=== PATIENT | female | born 1980 | race Caucasian/White ===

== ENCOUNTER 2018-11-03 19:18 | Emergency (ER) | payer SELFPAY ==
[~2018-11-03] VITALS: Ht 175.3 cm; Wt 113.6 kg
[2018-11-03 19:31] VITALS: BP 132/67; TEMP 98.2
[2018-11-03] MEDS ORDERED: MOTRIN 800800 MG/TAB PO (20:59)
[2018-11-03 21:06] VITALS: PULSE 95
== END 2018-11-03 21:06 | disposition home or self-care (01) ==
LOC: COL.ER 19:18
DX: M25.561 Pain in right knee (principal); Z98.51 Tubal ligation status
CPT/HCPCS: J1885

== ENCOUNTER 2019-07-30 04:57 | Emergency (ER) | payer SELFPAY ==
[~2019-07-30] VITALS: Ht 175.3 cm; Wt 118.2 kg
[2019-07-30 04:57] VITALS: BP 107/41
[~2019-07-30 04:57] MED LIST: MOTRIN 800800 MG/TAB PO
[2019-07-30 05:58] LABS: BASO % 0.3 % (0.0-2.0); EOS % 0.5 % (0-4.0); GRAN # 3.9 (1.4-6.5); HEMOGLOBIN 11.3 g/dl (12.5-16.0); LYMPH # 1.9 (1.2-3.4); LYMPH % 29.5 % (20.0-51.0); MEAN CELL VOLUME 75 fl (80.0-100.0); MEAN CORPUSCULAR HEMOGLOBIN 24 pg (27.0-31.0); MEAN CORPUSCULAR HGB CONC 32 g/dl (33.0-37.0); MEAN PLATELET VOLUME 10.2 fl (7.4-10.4); MONO # 0.5 (0.1-0.6); MONO % 7.4 % (1.7-9.3); PLATELET COUNT 319 K/mm3 (130-400); RED BLOOD COUNT 4.81 M/mm3 (4.10-5.30); REDCELL DISTRIBUTION WIDTH-CV 17.1 % (11.5-14.5)
[2019-07-30 05:59] LABS: HEMATOCRIT 35.9 % (37.0-47.0)
[2019-07-30 06:08] LABS: ALANINE AMINOTRANSFERASE 11 U/L (9-52); ALBUMIN 4.5 gm/dL (3.5-5.0); ALKALINE PHOSPHATASE 50 U/L (50-136); ANION GAP 11 mmol/L (7-16); AST,SGOT 22 U/L (15-37); BILIRUBIN,TOTAL 0.2 mg/dL (0.0-1.0); BLOOD UREA NITROGEN 9 mg/dL (7-17); CALCIUM 9.4 mg/dL (8.4-10.2); CARBON DIOXIDE 24 mmol/L (22-30); CHLORIDE 111 mmol/L (98-107); CREATINE KINASE 87 U/L (30-135); CREATININE, serum 0.57 (0.52-1.25); GLUCOSE 120 mg/dL (74-106); POTASSIUM 4.2 mmol/L (3.4-5.0); SODIUM 145 mmol/L (137-145); TOTAL PROTEIN 8.5 gm/dL (6.4-8.2)
[2019-07-30 06:17] LABS: INR 1.1 (0.8-3.0); PROTHROMBIN TIME 12.9 SECONDS (9.7-12.8)
[2019-07-30 06:26] LABS: TROPONIN-I < 0.012 ng/mL (0.000-0.035)
[2019-07-30 08:10] LABS: COLLECTION METHOD CLEAN CATCH
[2019-07-30 08:18] LABS: MUCOUS Present /lpf; PH 5 (5-8); SQUAMOUS EPITHELIAL 0-2 /hpf; URINE APPEARANCE Clear; URINE BACTERIA None Seen /hpf; URINE BILIRUBIN Negative (NEGATIVE); URINE BLOOD 3+ (NEGATIVE); URINE COLOR Yellow; URINE GLUCOSE Negative (NEGATIVE); URINE KETONE Negative (NEGATIVE); URINE LEUKOCYTE ESTERASE Negative (NEGATIVE); URINE NITRATE Negative (NEGATIVE); URINE PROTEIN(semi-quant) Negative (NEGATIVE); URINE UROBILINOGEN Negative (NEGATIVE)
[2019-07-30 08:24] LABS: TRICYCLIC ANTIDEPRESS URINE NEGATIVE
[2019-07-30] MEDS ORDERED: FLEXERIL 1010 MG/TAB PO (08:32)
[2019-07-30 09:18] VITALS: PULSE 82; TEMP 98.4
== END 2019-07-30 09:20 | disposition home or self-care (01) ==
LOC: COL.ER 04:57
PROVIDERS: Emergency Medicine
DX: N39.0 Urinary tract infection, site not specified (principal); Z04.1 Encounter for examination and observation following transport accident
CPT/HCPCS: J2405; J3010; J7030

== ENCOUNTER 2019-08-07 11:23 | Emergency (ER) | payer SELFPAY ==
[~2019-08-07] VITALS: Ht 175.3 cm; Wt 118.2 kg
[~2019-08-07 11:23] MED LIST changes: +FLEXERIL 1010 MG/TAB PO
[2019-08-07 11:29] VITALS: BP 109/56; TEMP 97.1
[2019-08-07 13:10] VITALS: PULSE 84
== END 2019-08-07 13:10 | disposition home or self-care (01) ==
LOC: COL.ER 11:23
DX: S76.312A Strain of muscle, fascia and tendon of the posterior muscle group at thigh level, left thigh, initial encounter (principal); S83.8X2A Sprain of other specified parts of left knee, initial encounter; V89.2XXA Person injured in unspecified motor-vehicle accident, traffic, initial encounter
CPT/HCPCS: J1885

== ENCOUNTER 2020-02-11 11:44 | Emergency (ER) | payer BC ==
[~2020-02-11] VITALS: Ht 175.3 cm; Wt 118.2 kg
[2020-02-11 11:51] VITALS: BP 112/73; TEMP 97.6
[2020-02-11] MEDS ORDERED: NEURONTIN300 MG/CAP PO ×3 (12:10→13:28)
[2020-02-11 12:50] LABS: BASO % 0.2 % (0.0-2.0); EOS # 0.1 (0.0-0.7); GRAN # 3.5 (1.4-6.5); GRAN % 54.8 % (42.2-75.2); HEMOGLOBIN 10.2 g/dl (12.5-16.0); LYMPH # 2.2 (1.2-3.4); LYMPH % 34.7 % (20.0-51.0); MEAN CELL VOLUME 74 fl (80.0-100.0); MEAN CORPUSCULAR HEMOGLOBIN 23 pg (27.0-31.0); MEAN CORPUSCULAR HGB CONC 31 g/dl (33.0-37.0); MEAN PLATELET VOLUME 10.4 fl (7.4-10.4); MONO # 0.5 (0.1-0.6); PLATELET COUNT 299 K/mm3 (130-400); RED BLOOD COUNT 4.45 M/mm3 (4.10-5.30); REDCELL DISTRIBUTION WIDTH-CV 16.9 % (11.5-14.5)
[2020-02-11 12:51] LABS: HEMATOCRIT 32.7 % (37.0-47.0)
[2020-02-11 12:55] LABS: INR 1.1 (0.8-3.0); PROTHROMBIN TIME 11.8 SECONDS (9.7-12.8)
[2020-02-11 12:59] LABS: ALANINE AMINOTRANSFERASE 18 U/L (4-34); ALBUMIN 4.1 gm/dL (3.5-5.0); ALKALINE PHOSPHATASE 47 U/L (50-136); ANION GAP 9 mmol/L (7-16); AST,SGOT 27 U/L (15-37); BILIRUBIN,TOTAL 0.3 mg/dL (0.0-1.0); BLOOD UREA NITROGEN 10 mg/dL (7-17); CALCIUM 9.4 mg/dL (8.4-10.2); CARBON DIOXIDE 28 mmol/L (22-30); CHLORIDE 105 mmol/L (98-107); CREATININE, serum 0.66 (0.52-1.25); GLUCOSE 97 mg/dL (74-106); POTASSIUM 3.8 mmol/L (3.4-5.0); SODIUM 141 mmol/L (137-145)
[2020-02-11 13:14] LABS: TROPONIN-I < 0.012 ng/mL (0.000-0.035)
[2020-02-11 13:27] VITALS: PULSE 72
== END 2020-02-11 13:27 | disposition home or self-care (01) ==
LOC: COL.ER 11:44
PROVIDERS: Emergency Medicine
DX: M54.10 Radiculopathy, site unspecified (principal); Z32.02 Encounter for pregnancy test, result negative
CPT/HCPCS: J1885; J2270; J2405